=== PATIENT | female | born 1945 | race Caucasian/White ===

== ENCOUNTER 2023-05-30 09:12 | Outpatient (REF) | payer MEDICARE, SELFPAY ==
--- NOTE | ~2023-05-30 | XR_ITS ---
EXAMINATION: XR SHOULDER, RIGHT CLINICAL INFORMATION: Pain in right shoulder. COMPARISON: None available. TECHNIQUE: 2 views of the right shoulder. FINDINGS: Degenerative changes in the imaged upper thoracic spine. Bones are diffusely demineralized. Mild degenerative changes in the acromioclavicular joint. Mild degenerative changes along the inferior aspect of the glenohumeral joint with alignment preserved. Small rounded calcification projects over the proximal shaft of the humerus. XR/XR shoulder RT min 2V IMPRESSION: 1. Mild degenerative changes in the acromioclavicular joint. 2. Mild degenerative changes along the inferior aspect of the glenohumeral joint with alignment preserved. 3. Small rounded calcification projects over the proximal shaft of the humerus.
== END 2023-05-30 09:13 | disposition home or self-care (01) ==
LOC: HO.HOSX 09:12
PROVIDERS: Visit Provider Orthopaedic Surgery
DX: M25.511 Pain in right shoulder (principal); M75.41 Impingement syndrome of right shoulder; Z79.899 Other long term (current) drug therapy
CPT/HCPCS: 73030; 99212

== ENCOUNTER 2023-05-30 09:58 | Outpatient (AMB) | payer MEDICARE, SELFPAY ==
--- NOTE | 2023-05-30 10:17 | A.OFFVIS_ITS ---
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 She describes her pain as sharp and severe in nature. Her pain has gotten worse over the last few years in spite of continued non operative treatments. She has done physical therapy which aggravated her pain. She has also tried Tylenol and anti-inflammatory medicines which gave her minimal relief. The patient reports difficulty lifting her right hand above shoulder height. She has had multiple injections. The most recent injection gave her no relief. Allergies No Known Allergies Allergy (Verified 05/30/23 10:43) Medication List - Last Reconciled 05/31/23 by Bong Sweet MD alendronate 70 mg PO QWEEK atorvastatin 20 mg PO DAILY PFSH Surgical History (Updated 05/30/23 @ 10:46 by Chandrika Francois CMA) Hx of shoulder surgery Hx of right knee surgery Hx of left knee surgery Social History (Updated 05/30/23 @ 10:48 by Chandrika Francois CMA) Patient Tobacco Use Status: Never used Tobacco Current occupational status: retired Current occupation: Left hand dominate Physical Exam Const Other: Well-nourished well-developed very friendly female awake alert and oriented x3 in no acute distress Extrem Other: Bilateral upper extremity examination shows good capillary refill, no skin lesions noted, normal sensation light touch Right shoulder examination shows decreased active and passive range of motion when compared to her left shoulder, 4+ out of 5 strength with supraspinatus testing, positive impingement signs, tenderness over her acromioclavicular joint, no instability Results Reviewed Results Reviewed: MRI of the patient's right shoulder show severe acromioclavicular joint narrowing, a type 3 acromion, signal change within the supraspinatus tendon most likely due to adhesive capsulitis Assessment & Plan Assessment & Plan (1) Right shoulder pain: Code(s): M25.511 - Pain in right shoulder Plan Ms. Friedman presents with progressively worsening right shoulder pain and stiffness due to impingement syndrome, acromioclavicular joint arthritis and adhesive capsulitis. I had a lengthy discussion with the patient regarding the treatment options. At this point she has failed continued non operative treatments. The risks and benefits of right shoulder surgery were discussed at length with the patient. The patient wishes to proceed with surgery. Surgery will most likely involve right shoulder diagnostic arthroscopy with distal clavicle excision, acromioplasty, capsular release and manipulation under anesthesia. The patient will be scheduled for next available date. She will follow-up as instructed. I spent 22 minutes in reviewing the patient's records and imaging studies, seeing the patient and documenting in the medical record. Orders: Orders XR shoulder RT min 2V 05/30/23 M25.511 - Pain in right shoulder Coding Level of Care Code Est Pt Level 2 (79217) Diagnoses Right shoulder pain M25.511
== END 2023-05-30 11:02 | disposition home or self-care (01) ==
PROVIDERS: Visit Provider Orthopaedic Surgery
DX: M25.511 Pain in right shoulder (principal)
CPT/HCPCS: 99214

== ENCOUNTER 2023-06-21 07:55 | Day surgery (SDC) | payer MEDICARE, SELFPAY ==
[2023-06-18 15:21] VITALS: BMI 32.3
--- NOTE | 2023-06-19 12:42 | P.CONAN_ITS ---
HPI - Anesthesia Eval Consult details Narrative: 77yo F for Right Knee Arthroscopy with partial medial meniscectomy PMFSH Active Problems Active Problems: All Active Problems Right shoulder pain (Acute) Past Medical History Medical History Non-Hodgkin lymphoma Osteoporosis Elevated cholesterol Surgical History Surgical History H/O colonoscopy History of total right knee replacement History of total left knee replacement Hx of shoulder surgery Social History Social History Are you a primary health care legal assistant to a significant other at home: No Do you presently have visiting nurse or other home services: No Patient Tobacco Use Status: Former Tobacco user Quit Date: age 47 Tobacco use type: Cigarette Current occupational status: retired Current occupation: Left hand dominate Meds Allergies Allergy/AdvReac Type Severity Reaction Status Date / Time No Known Allergies Allergy Verified 05/30/23 10:43 Home Medications ?Medication ?Instructions ?Recorded ?Confirmed ?Last Taken ?Type alendronate 70 mg tablet 70 mg PO QWEEK 05/30/23 06/18/23 Unknown History atorvastatin 20 mg tablet 20 mg PO QAM 05/30/23 06/18/23 Unknown History multivitamin 1 tab PO QAM 06/18/23 06/18/23 Unknown History Exam Height,Weight and Vital Signs: Height 5 ft 6 in Weight 90.718 kg Assessment and Plan Assessment Anesthesia Assessment: Chart Reviewed
--- NOTE | 2023-06-21 08:00 | HO.ANESPROP2 ---
PMFSH Active Problems Active Problems: All Active Problems Right shoulder pain (Acute) Past Medical History Medical History Non-Hodgkin lymphoma Osteoporosis Elevated cholesterol Functional capacity: independent ambulation Patient : No Surgical History Surgical History H/O colonoscopy History of total right knee replacement History of total left knee replacement Hx of shoulder surgery Social History Social History Are you a primary healthcare analyst to a significant other at home: No Do you presently have visiting nurse or other home services: No Patient Tobacco Use Status: Former Tobacco user Quit Date: age 47 Tobacco use type: Cigarette Have you been hit, kicked, punched, or otherwise hurt by someone within the past year? If so, by whom?: No Are you DNR?: No Advance Directives Information Provided: Yes (as above noted) Advance Directives on File: No Recently lost weight without trying: No Eating poorly because of decreased appetite: No Nutrition Risks: Surgical patient >75years Poor oral hygiene: No (upper full denture) Current occupational status: retired Current occupation: Left hand dominate Meds Allergies Allergy/AdvReac Type Severity Reaction Status Date / Time No Known Allergies Allergy Verified 05/30/23 10:43 Home Medications ?Medication ?Instructions ?Recorded ?Confirmed ?Last Taken ?Type alendronate 70 mg tablet 70 mg PO QWEEK 05/30/23 06/18/23 Unknown History atorvastatin 20 mg tablet 20 mg PO QAM 05/30/23 06/18/23 Unknown History multivitamin 1 tab PO QAM 06/18/23 06/18/23 Unknown History Exam Height,Weight and Vital Signs: Height 5 ft 6 in Weight 90.718 kg
[2023-06-21 08:37] VITALS: BP 136/79; PULSE 74; RESP 18; TEMP 36.3; O2SAT 96
[2023-06-21] MEDS: Lactated Ringers 1,000 ML 100 ML IVCONT (08:41)
--- NOTE | 2023-06-21 08:43 | PC.NURSE ---
DR. CHRISTOPHER ,CHRISTI AWARE OF RBBB/FIRST DEGREE AVB. ? NEW. DENIED CHEST PAIN, DIZZINESS, SOB OR LIGHT HEADEDNESS.
[2023-06-21 10:26] LABS: Hematocrit 41.9 % (37.0-47.0); Hemoglobin 13.5 g/dl (12.0-16.0); Mean Corpuscular HGB Conc 32.2 g/dl (31.0-35.0); Mean Corpuscular Volume 89.9 fL (80.0-98.0); Mean Platelet Volume 9.6 fL (9.4-12.3); Platelet Count 186 X10*3/uL (160-400); Red Blood Count 4.66 X10*6/uL (4.20-5.50); Red Cell Distribution Width 12.6 % (11.0-16.0); White Blood Count 6.8 X10*3/uL (4.8-10.8)
[2023-06-21 12:10] VITALS: BP 137/77; PULSE 74; RESP 16; TEMP 36.1; O2SAT 98
[2023-06-21 12:14] VITALS: BP 121/79; PULSE 71; RESP 16; O2SAT 97
[2023-06-21 12:20] VITALS: BP 119/81; PULSE 72; RESP 16; O2SAT 97
[2023-06-21 12:25] VITALS: BP 126/75; PULSE 71; RESP 16; O2SAT 97
[2023-06-21] MEDS: cefTRIAXone sodium 1 GM in 0.9 % Sodium Chloride 50 ML IV (12:30)
[2023-06-21 12:40] VITALS: BP 122/71; PULSE 72; RESP 16; TEMP 36.4; O2SAT 93
--- NOTE | 2023-06-21 12:42 | P.BOP_ITS ---
Brief Operative Note Date of Service: 06/21/23 Pre-op diagnosis: Right shoulder impingement syndrome, right shoulder arthritis, right shoulder adhesive capsulitis Post-op diagnosis: same Procedure: Right shoulder diagnostic arthroscopy with right shoulder arthroscopic distal clavicle excision, right shoulder arthroscopic acromioplasty, right shoulder arthroscopic glenohumeral joint debridement, right shoulder arthroscopic anterior capsular release, right shoulder manipulation under anesthesia Implants: None Surgeon: Bong Sweet MD Anesthesia: GETA and regional Was an Metal Drill Operator used for this Procedure?: No Estimated blood loss (mL): 15 Pathology: none sent Condition: stable Disposition: PACU
--- NOTE | 2023-06-21 12:43 | W.PM.OPN ---
Operative Note Operative Note Date of Service: 06/21/23 Narrative: After the patient was identified as Ellie Friedman and her right shoulder was initialed by myself the patient was brought to the holding area where a right shoulder interscalene regional block was performed by the anesthesiologist in routine fashion. The patient was then brought to the operating room where general anesthesia was induced by the anesthesiologist in routine fashion. The patient was given 2 g of IV Ancef preoperatively for infection prophylaxis. Examination under anesthesia of the patient's right shoulder showed decreased passive range of motion when compared to the left shoulder. The patient's right shoulder had passive forward flexion to 100 degrees compared to 170 degrees, external rotation to 20 degrees compared to 60 degrees, and internal rotation to 40 degrees compared to 50 degrees. The patient was gently positioned in the beach chair position with all bony prominences well padded. The patient's right shoulder region and upper extremity were prepped and draped in sterile fashion. A formal time-out was completed. A #11 scalpel blade was used to make a posterior portal 2 cm inferior and 1 cm medial to the posterolateral corner of the acromion. Blunt trocar technique was used to enter the glenohumeral joint in routine fashion. An anterior portal was made just lateral to the coracoid process after proper positioning was confirmed using a spinal needle. Diagnostic arthroscopy showed diffuse grade 3 and 4 degenerative changes of the glenoid and humeral head articular surfaces. The articular surfaces were made smooth using the arthroscopic shaver. There was no evidence of rotator cuff tearing. There was no evidence of injury to the biceps tendon or its insertion onto the glenoid. There was inflammation of the anterior joint capsule consistent with adhesive capsulitis. The ArthroCare Wand was then used to perform an anterior capsular release between the inferior border of the biceps tendon and the superior border of the subscapularis tendon. The arthroscope was then placed from the posterior portal into the subacromial space. A lateral portal was made 2 fingerbreadths lateral to the anterior lateral corner of the acromion. The ArthroCare Wand was used to ablate soft tissues along the undersurface of the acromion as well as to excise the coracoacromial ligament. There was a sharp spur along the undersurface of the acromion which was removed using the hooded bur. The arthroscope was then placed into the lateral portal and the acromioplasty was completed with the bur in the posterior portal using the posterior aspect of the acromion as a cutting block. The ArthroCare Wand was then brought in through the anterior portal and was used to ablate soft tissues along the acromioclavicular joint and distal clavicle. The posterior and superior ligamentous structures were left intact. A distal clavicle excision of 8 mm was performed using the fluted bur. Any remaining bursal tissue was removed using the arthroscopic shaver. The subacromial space was irrigated and then drained. All arthroscopic instruments were removed. A gentle manipulation under anesthesia was then performed. Full passive range of motion was easily attained. The 3 portals were closed with 3-0 nylon interrupted suture. The subacromial space was injected with Marcaine. Dry sterile dressing was placed over all incisions. The patient's right upper extremity was placed into a sling. The patient was awoken and extubated in the operating room. The patient was transferred to the recovery room in stable condition.
--- NOTE | 2023-06-21 14:01 | HO.POSTANES ---
Post Anesthesia Evaluation Post Anesthesia Evaluation Date of Service: 06/21/23 Vital Signs: Vital Signs Temp Pulse Resp BP Pulse Ox O2 Del Method O2 Flow Rate 06/21/23 12:40 97.5 F 72 16 122/71 93 Room Air 06/21/23 12:25 71 16 126/75 97 Nasal Cannula 3 06/21/23 12:20 72 16 119/81 97 Nasal Cannula 3 06/21/23 12:14 71 16 121/79 97 Nasal Cannula 5 06/21/23 12:10 97 F 74 16 137/77 98 Room Air 5 06/21/23 08:37 97.3 F 74 18 136/79 96 Room Air Anesthesia: General Endotracheal-GETA Mental Status: Awake Pain Control: Satisfactory Nausea/Vomiting: None Hydration: Adequate Anesthesia-Related Issues: No Anes. Related Issues
== END 2023-06-21 13:55 | disposition home or self-care (01) ==
PROVIDERS: Nurse Practitioner; PCP Pediatrics; Visit Provider Orthopaedic Surgery
PROC: (CPT 29805; principal; 2023-06-21 09:30)
DX: M75.41 Impingement syndrome of right shoulder (principal); M75.01 Adhesive capsulitis of right shoulder; M19.011 Primary osteoarthritis, right shoulder; M81.0 Age-related osteoporosis without current pathological fracture; C85.90 Non-Hodgkin lymphoma, unspecified, unspecified site; E78.00 Pure hypercholesterolemia, unspecified; Z79.899 Other long term (current) drug therapy; Z98.890 Other specified postprocedural states; Z87.891 Personal history of nicotine dependence
CPT/HCPCS: 29824; 29825; 29826; 36415; 85027; J0131; J0171; J0665; J0690; J0696; J1100; J2250; J2371; J2405; J2704; J2795; J3010

== ENCOUNTER → 2023-06-21 07:55 | Outpatient (BNV) | payer MEDICARE, SELFPAY | PROVIDERS: PCP Pediatrics; Visit Provider Orthopaedic Surgery | DX: M75.41 Impingement syndrome of right shoulder (principal); M19.011 Primary osteoarthritis, right shoulder; M75.01 Adhesive capsulitis of right shoulder | CPT/HCPCS: 29824; 29826 ==

== ENCOUNTER 2023-07-04 12:53 | Outpatient (AMB) | payer MEDICARE, SELFPAY ==
--- NOTE | 2023-07-04 13:01 | A.OFFVIS_ITS ---
Intake Visit Reasons: PO RT Shoulder 06/21/23 Intake Note: Ellie a 77 year old female who presents today for a post operative right shoulder on 06/21/23 Patient reports she is doing well, states some days are worse than others. She has no concerns today. Allergies No Known Allergies Allergy (Verified 07/04/23 13:04) HPI HPI PO RT Shoulder 06/21/23 DR: Details: 77-year-old female who returns to the office today for post-op right shoulder , 06/21/[address] Sweet. She states she has occasional pain in her shoulder however she is doing well overall. She does c/o some stiffness with raising her shoulder. She has no other concerns today. [facility] Medical History Non-Hodgkin lymphoma Osteoporosis Elevated cholesterol Surgical History H/O colonoscopy History of total right knee replacement History of total left knee replacement Hx of shoulder surgery Social History Are you a primary child care giver to a significant other at home: No Do you presently have visiting nurse or other home services: No Patient Tobacco Use Status: Former Tobacco user Quit Date: age 47 Tobacco use type: Cigarette Current occupational status: retired Current occupation: Left hand dominate Review of Systems Const All systems reviewed & are unremarkable except as noted in HPI and below Physical Exam Extrem Other: Right shoulder: Incision clean, dry and intact. No erythema or drainage. She has forward flexion to 100 degrees and external rotation to 80 degrees. NVI. Results Reviewed Results Reviewed: Brief Operative Note Date of Service: 06/21/23 Pre-op diagnosis: Right shoulder impingement syndrome, right shoulder arthritis, right shoulder adhesive capsulitis Post-op diagnosis: same Procedure: Right shoulder diagnostic arthroscopy with right shoulder arthroscopic distal clavicle excision, right shoulder arthroscopic acromioplasty, right shoulder arthroscopic glenohumeral joint debridement, right shoulder arthroscopic anterior capsular release, right shoulder manipulation under anesthesia Implants: None Surgeon: Bong Sweet MD Assessment & Plan Assessment & Plan (1) Impingement of right shoulder: Code(s): M25.811 - Other specified joint disorders, right shoulder Category: Medical Plan Sutures removed today, steri strips applied. She will begin course of physical therapy to work on ROM, RTC strengthening and periscapular stabilization. She will refrain from any type of lifting, pushing, pulling or carrying for the 4-6 weeks and gradually increase activity as tolerated. I would like to see her back in [address] Sweet, sooner if needed. Orders: Orders PT Evaluation and Treatment Today M25.811 - Other specified joint disorders, right shoulder Patient Instructions: Scribed for Jesse Webb PA-C, by Gee Hammond medical payment poster, on 07/04/2023 at 1:00 PM EST.? I, Jesse Webb PA-C, have personally reviewed and agree with the information entered by the scribe. Coding Level of Care Code Global (42770) Diagnoses Impingement of right shoulder M25.811
== END 2023-07-04 13:25 | disposition home or self-care (01) ==
PROVIDERS: Visit Provider Physician Assistant
DX: M25.811 Other specified joint disorders, right shoulder (principal)
CPT/HCPCS: 99024

== ENCOUNTER → 2023-07-04 12:53 | Outpatient (BNVA) | payer MEDICARE, SELFPAY | PROVIDERS: Visit Provider Physician Assistant | DX: M25.811 Other specified joint disorders, right shoulder (principal) | CPT/HCPCS: 99212 ==

== ENCOUNTER 2023-08-01 12:38 | Outpatient (AMB) | payer MEDICARE, SELFPAY ==
--- NOTE | 2023-08-01 12:45 | MHC.OFFVIS ---
Intake Visit Reasons: PO RT Shoulder 06/21/23 DR-follow up Intake Note: Ellie is a 77 year old right hand dominant female who presents today for a post operative appointment s/p Right Shoulder 06/21/23. Patient reports that she is doing well, continues to work with physical therapy. She reports mild intermittent discomfort in her right shoulder. She denies any fevers or chills. She has no longer taking narcotics for discomfort. Allergies No Known Allergies Allergy (Verified 07/04/23 13:04) Medication List - Last Reconciled 08/01/23 by Bong Sweet MD alendronate 70 mg PO QWEEK atorvastatin 20 mg PO QAM multivitamin 1 tab PO QAM oxycodone 10 mg (2 x 5 mg) PO Q4H PRN PFSH Medical History Non-Hodgkin lymphoma Osteoporosis Elevated cholesterol Surgical History H/O colonoscopy History of total right knee replacement History of total left knee replacement Hx of shoulder surgery Social History Are you a primary home visit field care manager to a significant other at home: No Do you presently have visiting nurse or other home services: No Patient Tobacco Use Status: Former Tobacco user Tobacco use type: Cigarette Current occupational status: retired Current occupation: Left hand dominate Physical Exam Extrem Other: Right shoulder examination shows that the surgical incisions are well healed, no erythema, almost full range of motion when compared to her left shoulder, minimal discomfort with range of motion Assessment & Plan Assessment & Plan (1) Right shoulder pain: Code(s): M25.511 - Pain in right shoulder Category: Medical Plan Ms. Friedman continues to do very well after undergoing right shoulder arthroscopic surgery on 06/21/2023. She will continue going to formal physical therapy for now. She will gradually transition to a home exercise program. The do's and don'ts of lifting were discussed at length with the patient. The patient will contact me prior to her follow-up appointment in 2 months should any questions or concerns arise. Feel free to call me at any time should questions regarding her orthopedic management arise. I spent 20 minutes in reviewing the patient's records and imaging studies, seeing the patient and documenting in the medical record. Coding Level of Care Code Global (54202) Diagnoses Right shoulder pain M25.511
== END 2023-08-01 13:03 | disposition home or self-care (01) ==
PROVIDERS: PCP Pediatrics; Visit Provider Orthopaedic Surgery
DX: M25.511 Pain in right shoulder (principal)
CPT/HCPCS: 99024

== ENCOUNTER → 2023-08-01 12:38 | Outpatient (BNVA) | payer MEDICARE, SELFPAY | PROVIDERS: PCP Pediatrics; Visit Provider Orthopaedic Surgery | DX: M25.511 Pain in right shoulder (principal) | CPT/HCPCS: 99212 ==

== ENCOUNTER 2023-09-24 08:03 | Outpatient (AMB) | payer MEDICARE, SELFPAY ==
--- NOTE | 2023-09-24 08:11 | A.OFFVIS_ITS ---
Intake Visit Reasons: Right shoulder pain Intake Note: Eitan is a 77 year old female who presents for routine follow-up after undergoing right shoulder arthroscopic surgery on 06/21/2023. The patient states that she continues going to formal physical therapy. She states that her pain has gotten somewhat worse over the last few weeks. Prior to her arthroscopic surgery she did have an appointment with Dr. Campbell to discuss the risks and benefits of right total shoulder replacement surgery. She canceled that appointment and elected to undergo arthroscopic surgery instead. Allergies No Known Allergies Allergy (Verified 09/24/23 08:17) Medication List - Last Reconciled 09/24/23 by Bong Sweet MD alendronate 70 mg PO QWEEK atorvastatin 20 mg PO QAM multivitamin 1 tab PO QAM oxycodone 10 mg (2 x 5 mg) PO Q4H PRN PFSH Medical History Non-Hodgkin lymphoma Osteoporosis Elevated cholesterol Surgical History H/O colonoscopy History of total right knee replacement History of total left knee replacement Hx of shoulder surgery Social History Are you a primary memory care program resident to a significant other at home: No Do you presently have visiting nurse or other home services: No Patient Tobacco Use Status: Former Tobacco user Tobacco use type: Cigarette Current occupational status: retired Current occupation: Left hand dominate Physical Exam Const Other: Well-nourished well-developed very friendly female awake alert and oriented x3 in no acute distress Extrem Other: Bilateral upper extremity examination shows good capillary refill, no skin lesions noted, normal sensation light touch Right shoulder examination shows that the surgical incisions are well healed, no erythema, decreased passive and active range of motion when compared to her left shoulder, palpable crepitus with range of motion, pain with range of motion, no instability Assessment & Plan Assessment & Plan (1) Right shoulder pain: Code(s): M25.511 - Pain in right shoulder Category: Medical Plan Ms. Friedman presents with continued right shoulder pain after undergoing arthroscopic surgery on 06/21/2023 due to glenohumeral joint arthritis. Although the patient's symptoms may continue to improve over the next few months it is possible that she will require total shoulder replacement surgery for complete resolution of her symptoms. I had a lengthy discussion with the patient regarding the treatment options. She wishes to follow up with Dr. Campbell as previously scheduled to further discuss the risks and benefits of reverse total shoulder replacement surgery. I agree with this plan. She will follow up with me on an as-needed basis. Feel free to call me at any time should questions regarding her orthopedic management arise. I spent 21 minutes in reviewing the patient's records and imaging studies, seeing the patient and documenting in the medical record. Coding Level of Care Code Est Pt Level 3 (20612) Diagnoses Right shoulder pain M25.511
== END 2023-09-24 08:36 | disposition home or self-care (01) ==
PROVIDERS: PCP Pediatrics; Visit Provider Orthopaedic Surgery
DX: M25.511 Pain in right shoulder (principal)
CPT/HCPCS: 99213

== ENCOUNTER → 2023-09-24 08:03 | Outpatient (BNVA) | payer MEDICARE, SELFPAY | PROVIDERS: PCP Pediatrics; Visit Provider Orthopaedic Surgery | DX: M25.511 Pain in right shoulder (principal) | CPT/HCPCS: 99212 ==